=== PATIENT | male | born 1970 | race Caucasian/White ===

== ENCOUNTER → 2019-07-25 | Outpatient (CLI) | payer OTHER ==
[~2019-07-25] MED LIST: CELE1CAP9 PO; META48.54 PO; METO200T28 PO; OMEP40CA97 PO
--- NOTE | 2019-07-25 19:02 | REP ---
Clinical: Right knee swelling. Technique: Real time casarez scale and color evaluation using linear high frequency transducer. Findings: Directed ultrasound examination of the right knee at the point of maximal swelling and tenderness in the popliteal fossa demonstrates no obvious fluid collection or abnormality. Popliteal vein and artery appear normal. Impression: No obvious abnormality noted. No Lee's cyst. Electronically Signed by Leo Leal MD 07/25/2019 06:53 P
== END ==
LOC: M RAD 13:17
PROVIDERS: ATTEND Psychiatry & Neurology Neurology
DX: R20.2 Paresthesia of skin (principal); R53.1 Weakness; M71.21 Synovial cyst of popliteal space [Baker], right knee

== ENCOUNTER → 2023-11-28 | Outpatient (CLI) | payer OTHER ==
[~2023-11-28] MED LIST changes: +CELE0.09 PO; -CELE1CAP9 PO; +OMEP40CA4 PO; -OMEP40CA97 PO
[2023-11-28 16:27] LABS: THYROXINE (T4) 11.9 UG/DL (4.5-10.9); VITAMIN B12 LEVEL 547 PG/ML (211-911)
[2023-11-28 16:28] LABS: THYROID STIMULATING HORMONE 2.891 uIU/ML (0.55-4.78)
[2023-11-28 17:04] LABS: FREE THYROXINE INDEX 4.4 % (1.4-3.8); T UPTAKE 36.8 % (22.5-37.0)
[2023-11-28 17:05] LABS: FOLATE > 24.00 NG/ML (>5.4)
== END ==
LOC: M PLALAB 12:56
PROVIDERS: ATTEND Psychiatry & Neurology Neurology
DX: E53.8 Deficiency of other specified B group vitamins (principal); E07.9 Disorder of thyroid, unspecified

== ENCOUNTER → 2025-01-21 | Outpatient (CLI) | payer OTHER ==
[~2025-01-21] MED LIST changes: +METO200T15 PO; -METO200T28 PO
[2025-01-21 14:09] LABS: BASO # 0.1 10^3/uL (0.0-0.2); BASO % 0.9 % (0.0-1.0); EOS # 0.1 10^3/uL (0.0-0.5); HEMATOCRIT 48.2 % (42.0-52.0); HEMOGLOBIN 15.9 g/dl (13.5-17.5); LYMPH # 1.5 10^3/uL (1.5-5.0); LYMPH % 23.1 % (24.0-44.0); MEAN CORPUSCULAR HEMOGLOBIN 30.1 pg (27.0-33.0); MEAN CORPUSCULAR VOLUME 91.3 fl (80.0-96.0); MONO # 0.6 10^3/uL (0.0-0.8); NEUTROPHILS # 4.2 10^3/uL (1.5-8.5); NEUTROPHILS % 64.2 % (36.0-66.0); PLATELET COUNT, AUTOMATED 191 10^3/uL (150-450); RED BLOOD COUNT 5.28 10^6/uL (4.30-6.10); WHITE BLOOD COUNT 6.6 10^3/uL (4.0-10.0)
[2025-01-21 14:19] LABS: ERYTHROCYTE SEDIMENTATION RATE 17 mm/hr (0-20)
[2025-01-21 14:31] LABS: C REACTIVE PROTEIN QUANTITATIV 0.51 MG/DL (<1.0); RHEUMATOID FACTOR QUANT 6.7 IU/ML (<14)
[2025-01-23 02:37] LABS: IgG P18 AB NON-REACTIVE; IgG P23 AB NON-REACTIVE; IgG P28 AB NON-REACTIVE; IgG P30 AB NON-REACTIVE; IgG P39 AB NON-REACTIVE; IgG P41 AB NON-REACTIVE; IgG P45 AB NON-REACTIVE; IgG P58 AB REACTIVE; IgG P66 AB NON-REACTIVE; IgG P93 AB NON-REACTIVE; IgM P23 AB REACTIVE; IgM P39 AB NON-REACTIVE; IgM P41 AB NON-REACTIVE; LYME IgG WB INTERPRETATION NEGATIVE (NEGATIVE); LYME IgM WB INTERPRETATION NEGATIVE (NEGATIVE)
== END ==
LOC: M PLALAB 09:33
PROVIDERS: ATTEND Internal Medicine Infectious Disease
DX: M25.50 Pain in unspecified joint (principal); M05.80 Other rheumatoid arthritis with rheumatoid factor of unspecified site